=== PATIENT | female | born 1965 | race Caucasian/White ===

== ENCOUNTER 2022-12-08 02:44 | Emergency (ER) | payer MEDICAID ==
[2022-12-08 02:55] VITALS: BP 152/100; PULSE 98
== END 2022-12-08 04:02 | disposition home or self-care (01) ==
LOC: JP.ED 02:44
DX: L76.33 Postprocedural seroma of skin and subcutaneous tissue following a dermatologic procedure (principal); Z98.890 Other specified postprocedural states
CPT/HCPCS: 36415; 85027; 99283

== ENCOUNTER 2023-11-11 06:54 | Day surgery (SDC) | payer MEDICAID ==
[2023-11-11] MEDS ORDERED: Propofol 200 MG/20 ML SDV ONE ×3 (07:24→09:03)
[2023-11-11] MEDS ORDERED: fentaNYL 50 MCG/ML SDV ONE (07:24)
[2023-11-11] MEDS ORDERED: Midazolam 1 MG/ML 2 ML SDV ONE (07:24)
[2023-11-11] MEDS ORDERED: Lactated Ringers 1,000 ML IV SCH (08:00)
[2023-11-11 10:12] VITALS: BP 167/98; PULSE 79
== END 2023-11-11 10:30 | disposition home or self-care (01) ==
LOC: JP.SDS 06:54
PROVIDERS: ATTEND Student in an Organized Health Care Education/Training Program
DX: Z12.11 Encounter for screening for malignant neoplasm of colon (principal); K29.50 Unspecified chronic gastritis without bleeding; K31.7 Polyp of stomach and duodenum; K21.9 Gastro-esophageal reflux disease without esophagitis; K44.9 Diaphragmatic hernia without obstruction or gangrene; I10 Essential (primary) hypertension; E66.9 Obesity, unspecified; Z68.33 Body mass index [BMI] 33.0-33.9, adult
CPT/HCPCS: 43239; 45378; 88305; J2250; J2704; J3010; J7120

== ENCOUNTER 2025-05-06 06:30 | Emergency (ER) | payer SELFPAY ==
[2025-05-06 06:52] VITALS: BP 179/104; PULSE 81
== END 2025-05-06 08:16 | disposition home or self-care (01) ==
LOC: JP.ED 06:30
DX: S60.212A Contusion of left wrist, initial encounter (principal); I10 Essential (primary) hypertension; M19.90 Unspecified osteoarthritis, unspecified site; E03.9 Hypothyroidism, unspecified; Z86.16 Personal history of COVID-19; Z98.84 Bariatric surgery status; Z79.82 Long term (current) use of aspirin; Z79.890 Hormone replacement therapy; Z79.899 Other long term (current) drug therapy; W19.XXXA Unspecified fall, initial encounter; Y92.019 Unspecified place in single-family (private) house as the place of occurrence of the external cause
CPT/HCPCS: 73110-26-LT; 73110-LT; 99282; 99283